=== PATIENT | female | born 1970 | race Caucasian/White ===

== ENCOUNTER 2023-09-17 10:36 | Inpatient (IN) | payer SELFPAY ==
[2023-09-17 11:29] VITALS: BMI 28.8
[2023-09-17] MEDS ORDERED: Acetaminophen 650 MG Suppository PR PRN (12:56)
[2023-09-17] MEDS ORDERED: Acetaminophen 325 MG TAB PO PRN (12:56)
[2023-09-17] MEDS ORDERED: Ondansetron PF 4 MG/2 ML Vial IVP PRN (12:56)
[2023-09-17] MEDS: Ondansetron ODT 4 MG TAB PO PRN (14:58)
[2023-09-17] MEDS ORDERED: Lorazepam 1 MG TAB PO PRN (15:25)
[2023-09-17] MEDS ORDERED: Lorazepam 2 MG/ML VIAL IM PRN (15:25)
[2023-09-17] MEDS ORDERED: Electrolyte Replacement Protocol 1 EACH FS SCH (15:30)
[2023-09-17] MEDS ORDERED: Communication Order-Pharmacy FS SCH (16:14)
[2023-09-17] MEDS: Thiamine HCl 200 MG/2 ML VIAL SLOW IVP SCH (16:15)
[2023-09-17] MEDS: Folic Acid 1 MG TAB PO SCH (16:15)
[2023-09-17] MEDS: cefTRIAXone\\ROCEPHIN 1 GM in Sodium Chloride 0.9% 100 ML IVPB SCH (16:15)
[2023-09-17] MEDS: Multivit, Therapeutic 1 TAB PO SCH (16:16)
[2023-09-17] MEDS: Morphine 4 MG/ML VIAL SLOW IVP PRN (16:20)
[2023-09-17 16:26] LABS: INR-International Normal Ratio 1.5; Prothrombin Time 17.8 sec (12.0-14.7)
[2023-09-17 16:27] LABS: PTT 32.6 sec (22.9-36.1)
[2023-09-17 17:02] LABS: Bilirubin, Direct 1.2 mg/dL (0.1-0.3)
[2023-09-17] MEDS ORDERED: Enoxaparin 100 MG (1 mL) SYRINGE SC SCH ×2 (21:00)
[2023-09-17] MEDS: Enoxaparin 40 MG (0.4 mL) SYRINGE SC SCH (21:12)
[2023-09-17] MEDS: Benzonatate 100 MG CAP PO PRN (21:16)
[2023-09-17] MEDS: Magnesium 2 GM/50 ML(in water) 2 GM in Premix 1 BAG IVPB SCH (22:19)
[2023-09-17] MEDS: Morphine 2 MG/ML VIAL SLOW IVP PRN (22:25)
[2023-09-18 04:18] LABS: #Basophils 0.03 10x3/uL (0.0-0.2); %Basophils 0.3 % (0.0-1.0); %Eosinophils 0.9 % (0.0-10.0); %Lymphocytes 11.4 % (21.0-51.0); %Monocytes 8.4 % (0.0-10.0); %Neutrophils 78.2 % (42.0-75.0); Hematocrit 27.8 % (36.0-47.0); Mean Corpuscular HGB CONC 32.4 g/dL (32.0-36.0); Mean Corpuscular Hemoglobin 35.2 pg (27.0-31.0); Mean Corpuscular Volume 108.6 fL (78.0-98.0); Mean Platelet Volume 10.3 fL (7.4-10.4); Platelet Count 221 10x3/uL (130-400); RBC Distribution Width 13.2 % (11.5-14.5); Red Blood Cell (RBC) Count 2.56 mill/uL (4.20-5.40)
[2023-09-18 04:31] LABS: Phosphorus 2.1 mg/dL (2.3-4.7)
[2023-09-18 04:32] LABS: Anion Gap 13 mmol/L (10-20); BUN (Urea Nitrogen) 12 mg/dL (9.8-20.1); Calc. Creatinine Clearance 108 mL/min (70-130); Calcium 7.5 mg/dL (7.8-10.44); Carbon Dioxide 20 mmol/L (22-29); Chloride 101 mmol/L (98-107); Estimated GFR 84; Glucose 103 mg/dL (70-105); Magnesium 2.4 mg/dL (1.6-2.6); Potassium 3.2 mmol/L (3.5-5.1); Sodium 131 mmol/L (136-145)
[2023-09-18 08:32] LABS: Amphetamine Not Detected (NotDetected); Barbiturates Screen Not Detected (NotDetected); Benzodiazepine Screen Not Detected (NotDetected); Cocaine Metabolite Screen Not Detected (NotDetected); Methadone Not Detected (NotDetected); Methamphetamine Not Detected (NotDetected); Opiate Screen Detected (NotDetected); Oxycodone Screen Not Detected (NotDetected); Phencyclidine (PCP) Not Detected (NotDetected); THC/Cannabinoid Screen Not Detected (NotDetected); Tricyclic Screen Not Detected (NotDetected)
[2023-09-18] MEDS: Potassium Chloride 20 MEQ TAB PO SCH ×2 (09:59→10:15)
[2023-09-18] MEDS: Multivit, Therapeutic 1 TAB PO SCH (10:06)
[2023-09-18] MEDS: Folic Acid 1 MG TAB PO SCH (10:06)
[2023-09-18] MEDS ORDERED: Lorazepam 1 MG TAB PO PRN (15:25)
[2023-09-18 16:10] VITALS: BP 149/93; TEMP 98.2
[2023-09-18] MEDS ORDERED: Pantoprazole 40 MG VIAL IVP SCH (21:00)
[2023-09-19] MEDS ORDERED: Lorazepam 1 MG TAB PO PRN (15:25)
[2023-09-20] MEDS ORDERED: Lorazepam 0.5 MG TAB PO PRN (15:25)
[2023-09-20] MEDS ORDERED: Thiamine 100 MG TAB PO SCH (16:00)
== END 2023-09-18 18:15 | disposition home or self-care (01) | DRG 438 ==
LOC: 2SE 10:36 → OBSVTOIN 09-18 09:40
PROVIDERS: ADMIT Family Medicine; ATTEND Emergency Medicine
DX: K85.90 Acute pancreatitis without necrosis or infection, unspecified (principal); I81 Portal vein thrombosis; K86.1 Other chronic pancreatitis; K74.60 Unspecified cirrhosis of liver; I11.0 Hypertensive heart disease with heart failure; I50.9 Heart failure, unspecified; D75.89 Other specified diseases of blood and blood-forming organs; G47.33 Obstructive sleep apnea (adult) (pediatric); R05.9 Cough, unspecified; E83.42 Hypomagnesemia; F10.10 Alcohol abuse, uncomplicated; K76.89 Other specified diseases of liver; Z90.49 Acquired absence of other specified parts of digestive tract; Z98.51 Tubal ligation status; Z98.84 Bariatric surgery status; Z86.711 Personal history of pulmonary embolism; Z86.718 Personal history of other venous thrombosis and embolism
CPT/HCPCS: 36415; 76700; 80048; 80306; 82248; 83735; 84100; 85025; 85610; 85730; 87086; 93306; J0696; J1650; J2270; J2272; J3411; J3475; J3490; Q0162